=== PATIENT | female | born 1940 | race Caucasian/White ===

== ENCOUNTER 2017-04-25 11:53 | Day surgery (SDC) | payer MEDICARE, BC ==
[~2017-04-25 11:53] MED LIST: ACETAMINOPHEN650 M2 PO; ACTONEL35 MG; ADULT ASPIRIN81 MG; ADULT ASPIRIN81 MG PO; ALAVERT10 MG PO; AMOXICILLIN500 M PO; AMOXICILLIN500 MG PO; ANTACID650 MG PO; ASPIR 8181 MG PO; ASPIR-LOW81 M1 PO; ASPIR-LOW81 MG PO; BL MAXEPA CAPSU1 CAP PO; CALCIUM CA PO; DOCUSATE SODIU100 MG PO; EQL FISH OIL 1,1 CA1 PO; FERROUS SULFAT325 MG PO; FISH OIL 1,2001 CAP PO; FISH OIL 1,2001 EAC5 PO; FLONASE16 G1; FLONASE16 G3; FORTICAL; FORTICAL3.7 ML NS; GABAPENTIN PO; GABAPENTIN100 MG PO; HYDROCODONE-ACETAMIN PO; LYRICA25 MG PO; METOPROLOL SUCC25 M1 PO; MIACALCIN4 ML NS; MULTIVITAMIN1 CAP; MULTIVITAMIN1 TAB PO; NEPHROCAPS CAPSU1 MG; NEPHROCAPS CAPSU1 MG PO; NEPHROCAPS SOFTG1 M1 PO; NEURONTIN100 M1 PO; NEURONTIN100 MG PO; NEURONTIN300 M1 PO; NORCO 5/325 TAB1 TAB; NORVASC10 MG; OS-CAL 500+D C1 EACH PO; OS-CAL 500+D31 EACH PO; PLAVIX75 M1 PO; PRILOSEC OTC20 M1 PO; PRILOSEC20 M1 PO; PRILOSEC20 MG PO; PROAIR RESPICL90 MCG INH; PROVENTIL17 GM IH; RENAGEL800 MG; RENVELA800 M1 PO; RENVELA800 MG PO; ROBITUSSIN COU118 M8 PO; ROBITUSSIN15 MG/5 M1 PO; ROBITUSSIN15 MG/5 ML PO; TOPROL XL25 MG PO; TOPROL XL50 MG; TUMS PO; TUMS500 M1 PO; TYLENOL ARTHRI650 MG PO; TYLENOL W/CODEI1 TAB PO; TYLENOL500 MG PO; VERAMYST10 GM NS; VITAMIN D350000 UNI1 PO; ZANTAC15 PO; ZANTAC150 MG PO
== END 2017-04-25 14:49 ==
LOC: SHSC 11:53
PROC: B51WYZZ Fluoroscopy of Dialysis Shunt/Fistula using Other Contrast (ICD-10-PCS; principal; 2017-04-25)
PROC: 05783ZZ Dilation of Left Axillary Vein, Percutaneous Approach (ICD-10-PCS; 2017-04-25)
DX: T82.858A Stenosis of other vascular prosthetic devices, implants and grafts, initial encounter (principal); N18.6 End stage renal disease; E89.2 Postprocedural hypoparathyroidism; Z79.02 Long term (current) use of antithrombotics/antiplatelets; Z79.82 Long term (current) use of aspirin; Z79.899 Other long term (current) drug therapy; Z88.1 Allergy status to other antibiotic agents; Z88.4 Allergy status to anesthetic agent; Z88.8 Allergy status to other drugs, medicaments and biological substances; Z90.710 Acquired absence of both cervix and uterus; Z98.890 Other specified postprocedural states; Z99.2 Dependence on renal dialysis
CPT/HCPCS: C1725; C1769; J1644; J2250; J3010; Q9967